=== PATIENT | female | born 1990 | race Caucasian/White ===

== ENCOUNTER 2024-02-05 12:43 | Emergency (ER) | payer OTHER ==
[~2024-02-05] VITALS: Ht 172.7 cm; Wt 59.0 kg
[2024-02-05] MEDS ORDERED: MAG HYDROX/AL HYDROX/SIMETH 30 ML UDC ONE (13:53)
[2024-02-05] MEDS ORDERED: ACETAMINOPHEN 325 MG TABLET ONE (13:53)
[2024-02-05] MEDS ORDERED: FAMOTIDINE/PF INJ 20 MG/2 ML VIAL IV ONE (13:54)
[2024-02-05] MEDS ORDERED: FAMOTIDINE (20 MG) 20 MG TABLET ONE (13:56)
[2024-02-05] MEDS: MAG HYDROX/AL HYDROX/SIMETH 30 ML UDC PO ONE (13:57)
[2024-02-05 13:58] LABS: APPEARANCE,URINE CLEAR (CLEAR); BILIRUBIN,URINE NEGATIVE (NEGATIVE); BLOOD, URINE NEGATIVE Ery/uL (NEGATIVE); COLOR,URINE YELLOW (YELLOW); KETONES,URINE 1+ mg/dL (NEGATIVE); LEUKOCYTE ESTERASE ,URINE NEGATIVE (NEGATIVE); NITRITE, URINE NEGATIVE (NEGATIVE); PH,URINE 7.5 (5.0-8.0); PROTEIN,URINE NEGATIVE (NEGATIVE); UGLUCOSE NEGATIVE (NEGATIVE); UROBILINOGEN,URINE 0.2 EU/dL (0.2)
[2024-02-05] MEDS: ACETAMINOPHEN 325 MG TABLET PO ONE (13:58)
[2024-02-05] MEDS: FAMOTIDINE (20 MG) 20 MG TABLET PO ONE (13:58)
[2024-02-05 14:02] LABS: PREGNANCY TEST URINE QUAL NEGATIVE (NEGATIVE)
[2024-02-05 14:11] LABS: BASOPHILS % (AUTO) 0.2 % (0.0-2.0); EOSINOPHILS % (AUTO) 0.1 % (0.0-6.0); HEMATOCRIT 39 % (33-45); HEMOGLOBIN 13.3 g/dL (11.5-14.8); LYMPHOCYTES # (AUTO) 1.8 K/uL (0.8-4.8); LYMPHOCYTES % (AUTO) 27.9 % (20.0-44.0); MEAN CORPUSCULAR HEMOGLOBIN 31 PG (26.0-33.0); MEAN CORPUSCULAR HGB CONC 34 g/dl (31.0-36.0); MEAN CORPUSCULAR VOLUME 91 fL (82-100); MONOCYTES # (AUTO) 0.3 K/uL (0.1-1.30); MONOCYTES % (AUTO) 5.1 % (2.0-12.0); NEUTROPHILS # (AUTO) 4.3 K/uL (1.8-8.9); NEUTROPHILS % (AUTO) 66.7 % (43.0-81.0); PLATELET COUNT (AUTO) 183 K/uL (150-450); RED BLOOD CELL COUNT(AUTO) 4.26 MIL/uL (4.0-5.2); RED CELL DISTRIBUTION WIDTH 12.1 % (11.5-15.0); WHITE BLOOD COUNT (AUTO) 6.4 K/uL (4.3-11.0)
[2024-02-05 14:23] LABS: ADD URINE CULTURE NO; BACTERIA,URINE Rare /HPF (None Seen); RBC,URINE 0-2 /HPF (0-2); SQUAMOUS EPITHELIAL CELL,UR 0-2 /HPF (None Seen); WBC,URINE 0-2 /HPF (0-3)
[2024-02-05 14:39] LABS: CALCIUM, SERUM 9.2 mg/dL (8.5-10.1); CREATININE 0.6 mg/dL (0.6-1.3); POTASSIUM 4.7 mmol/L (3.5-5.1)
[2024-02-05 14:46] LABS: ALBUMIN 4.4 g/dL (3.4-5.0); BILIRUBIN,TOTAL 0.8 mg/dL (0.2-1.0); TOTAL PROTEIN, SERUM 7.8 g/dL (6.4-8.2)
[2024-02-05] MEDS ORDERED: ACET325C7 PO (16:11)
[2024-02-05] MEDS ORDERED: FAMO20TA80 PO (16:11)
[2024-02-05] MEDS ORDERED: MAG355OR18 PO (16:14)
[2024-02-05 16:59] VITALS: BP 128/78; TEMP 98.4; O2SAT 97
== END 2024-02-05 16:45 | disposition home or self-care (01) ==
LOC: ER 12:43
DX: K29.70 Gastritis, unspecified, without bleeding (principal); R10.13 Epigastric pain; R10.30 Lower abdominal pain, unspecified
CPT/HCPCS: 36415; 76700-TC; 80053-TC; 81001; 83690-TC; 84703-TC; 85025-TC; J3490

== ENCOUNTER 2024-05-14 18:45 | Emergency (ER) | payer OTHER ==
[~2024-05-14] VITALS: Ht 172.7 cm; Wt 59.0 kg
[~2024-05-14 18:45] MED LIST: ACET325C7 PO; FAMO20TA80 PO; MAG355OR18 PO
[2024-05-14 18:58] VITALS: TEMP 97.9
[2024-05-14 21:52] VITALS: BP 138/79; O2SAT 99
== END 2024-05-14 21:53 | disposition home or self-care (01) ==
LOC: ER 18:54
DX: R00.2 Palpitations (principal); R00.0 Tachycardia, unspecified; I51.7 Cardiomegaly